=== PATIENT | female | born 1990 | race Two or more races ===

== ENCOUNTER → 2025-06-01 | Outpatient (CLI) | payer BC, SELFPAY ==
[2025-06-01 11:28] LABS: Misc Send Out* See Sep Rpt
[2025-06-01 13:07] LABS: Syphilis Nonreactive (Nonreactive)
[2025-06-04 03:02] LABS: HCV RNA, PCR <15 NOT DETECTED IU/mL
[2025-06-04 07:21] LABS: HCV RNA, PCR Log IU <1.18 NOT DETECTED Log IU/mL; HIV Ag/Ab, 4th Gen NON-REACTIVE
== END | disposition home or self-care (01) ==
PROVIDERS: Referring Provider Obstetrics & Gynecology; Visit Provider Obstetrics & Gynecology
DX: Z20.2 Contact with and (suspected) exposure to infections with a predominantly sexual mode of transmission (principal)
CPT/HCPCS: 36415; 86780; 87389; 87522